=== PATIENT | female | born 1985 | race Caucasian/White ===

== ENCOUNTER 2018-09-15 01:09 | Inpatient (IN) | payer OTHER, BC ==
[~2018-09-15] VITALS: Ht 162.6 cm; Wt 71.0 kg
[2018-09-15] VITALS (7 sets, daily range): BP systolic 101–116; BP diastolic 58–74; PULSE 62–116; RESP 16; Ht 162.6 cm; Wt 71.0 kg
[2018-09-15] MEDS ORDERED: KETOROLAC 15 MG INJ IV STA (02:28)
[2018-09-15] MEDS ORDERED: SOD CHLORIDE 0.9% 1,000 ML IV STA (02:28)
[2018-09-15] MEDS ORDERED: ONDANSETRON 4 MG INJ IV STA (02:28)
--- NOTE | 2018-09-15 04:35 | ERD ---
ER Documentation Chief Complaint Chief Complaint AP/FEVER X 3 DAYS HPI The patient is a 32-year-old female, presenting to the ER because of right-sided abdominal pain and back pain and fever for 3days. She had similar symptoms previously, denies cough, neck pain, chest pain, dyspnea, vomiting, dysuria, complains of constipation. She does not smoke, drinks socially Medical history: None Past surgical history: Rhinoplasty ROS All systems reviewed and are negative except as per history of present illness. Medications Home Meds No Active Prescriptions or Reported Meds Allergies Allergies: Coded Allergies: No Known Allergy (Unverified , 09/15/18) PMhx/Soc Medical and Surgical Hx: pt denies Medical Hx, pt denies Surgical Hx Hx Alcohol Use: No Hx Substance Use: No Hx Tobacco Use: No Smoking Status: Never smoker Physical Exam Vitals Vital Signs Date Temp Pulse Resp B/P (MAP) Pulse Ox O2 O2 Flow FiO2 Time Delivery Rate 09/15/18 87 17 124/84 97 Room Air 05:05 (97) 09/15/18 99.7 03:45 09/15/18 99.8 109 18 139/68 97 01:16 (91) Physical Exam Const: No acute distress. Head: Atraumatic. Eyes: Normal Conjunctiva. ENT: Normal External Ears, Nose and Mouth. Neck: Full range of motion. No meningismus. Resp: Clear to auscultation bilaterally. Cardio: Regular tachycardic Abd: Soft, non distended, normal bowel sounds, right CVA tenderness Skin: No petechiae or rashes. Back: No midline or flank tenderness. Ext: No cyanosis, or edema. Neur: Awake and alert. No focal deficit Psych: Normal Mood and Affect. Result Diagram: 09/15/18 0237 09/15/18 0237 Results 24 hrs Laboratory Tests Test 09/15/18 02:37 09/15/18 02:41 White Blood Count 20.8 10^3/ul Red Blood Count 3.98 10^6/ul Hemoglobin 11.3 g/dl Hematocrit 35.0 % Mean Corpuscular Volume 87.9 fl Mean Corpuscular Hemoglobin 28.4 pg Mean Corpuscular Hemoglobin Concent 32.3 g/dl Red Cell Distribution Width 14.5 % Platelet Count 223 10^3/UL Mean Platelet Volume 9.7 fl Immature Granulocytes % 1.100 % Neutrophils % 88.3 % Lymphocytes % 5.3 % Monocytes % 5.1 % Eosinophils % 0.0 % Basophils % 0.2 % Nucleated Red Blood Cells % 0.0 /100WBC Immature Granulocytes # 0.230 10^3/ul Neutrophils # 18.4 10^3/ul Lymphocytes # 1.1 10^3/ul Monocytes # 1.1 10^3/ul Eosinophils # 0.0 10^3/ul Basophils # 0.0 10^3/ul Nucleated Red Blood Cells # 0.0 10^3/ul Prothrombin Time 13.9 Sec Prothrombin Time Ratio 1.1 INR International Normalized Ratio 1.06 Activated Partial Thromboplast Time 28.0 Sec Urine Color YELLOW Urine Clarity SLIGHTLY CLOUDY Urine pH 7.0 Urine Specific [place] 1.016 Urine Ketones 1+ mg/dL Urine Nitrite NEGATIVE mg/dL Urine Bilirubin NEGATIVE mg/dL Urine Urobilinogen NEGATIVE mg/dL Urine Leukocyte Esterase 2+ Vandana/ul Urine Microscopic RBC 7 /HPF Urine Microscopic WBC 70 /HPF Urine Squamous Epithelial Cells FEW /HPF Urine Hemoglobin 1+ mg/dL Urine Glucose NEGATIVE mg/dL Urine Total Protein 1+ mg/dl Sodium Level 137 mmol/L Potassium Level 4.0 mmol/L Chloride Level 108 mmol/L Carbon Dioxide Level 20 mmol/L Anion Gap 9 Blood Urea Nitrogen 11 mg/dl Creatinine 0.72 mg/dl Est Glomerular Filtrat Rate mL/min > 60 mL/min Glucose Level 111 mg/dl Calcium Level 8.8 mg/dl Total Bilirubin 0.3 mg/dl Direct Bilirubin 0.00 mg/dl Indirect Bilirubin 0.3 mg/dl Aspartate Amino Transf (AST/SGOT) 50 IU/L Alanine Aminotransferase (ALT/SGPT) 53 IU/L Alkaline Phosphatase 116 IU/L Total Protein 6.9 g/dl Albumin 3.4 g/dl Globulin 3.50 g/dl Albumin/Globulin Ratio 0.97 Lipase 28 U/L POC Beta HCG, Qualitative NEGATIVE Current Medications Medications Dose Sig/Olvin Start Time Status Last (Trade) Ordered Route PRN Stop Time Admin Dose Reason Admin Sodium 1,000 ml @ Q1H STAT 09/15/18 DC 09/15/18 Chloride 1,000 mls/hr IV 02:28 02:44 09/15/18 03:27 Ondansetron 4 mg ONCE STAT 09/15/18 DC 09/15/18 HCl (Zofran IV 02:28 02:55 Inj) 09/15/18 02:30 Ketorolac 15 mg ONCE STAT 09/15/18 DC 09/15/18 Tromethamine IV 02:28 02:55 (Toradol) 09/15/18 02:30 Piperacillin 100 ml @ ONCE ONCE 09/15/18 DC 09/15/18 Sod/ 200 mls/hr IVPB 05:00 05:27 Tazobactam 09/15/18 05:29 Sod Procedures/MDM [place] [id number] Radiology Main Line: [phone] DIAGNOSTIC IMAGING REPORT Patient: DOROTHY LARES : 1985 Age: 32 Sex: F MR #: [id number] DOS: 09/15/18 0228 Ordering MD: DANIELLE CHRISTINE PA-C Location: [facility] Room/Bed: PROCEDURE: CT Abdomen and pelvis without contrast. CLINICAL INDICATION: Abdominal pain TECHNIQUE: CT scan of the abdomen and pelvis without contrast was performed on a multidetector high-resolution CT scan. . Coronal and sagittal reformatted images were obtained from the axial source images. Standard CT scan of the abdomen pelvis without contrast protocols were performed. The total exam CTDI equals 11.53 mGy and the total exam DLP equals 691.54 mGy- cm. One or more of the following dose reduction techniques were used: - Automated exposure control. - Adjustment of the mA and/or kV according to patient size. Use of iterative reconstruction technique. Dicom images are available COMPARISON: None. FINDINGS: There is a 5 mm obstructing calcified calculus approximately 4 cm distal to the right ureter pelvic junction with moderate proximal right hydroureter and hydronephrosis. Remainder of the right ureter is unremarkable. No other right urinary calcified calculi. No evidence of left urinary calcified calculi or obstructive uropathy. The kidneys are normal in size without intra renal masses. Urinary bladder partially contracted otherwise unremarkable. Anteverted anteflexed uterus otherwise unremarkable. In the left adnexa is a 2.3 cm cyst consistent with a left ovarian / para ovarian cyst. No other adnexal masses. No evidence of intra-abdominal free air, free fluid, abscesses or lymphadenopathy. Stomach, small bowel, large bowel and appendix are unremarkable. Liver spleen pancreas adrenal glands and gallbladder are unremarkable. No evidence of biliary ductal dilation. Bilateral tiny pleural effusions. Bibasilar patchy ground-glass opacities consistent with subsegmental atelectasis/pneumonitis. Aorta unremarkable. Tiny fat containing umbilical hernia without herniated bowel or strangulation. The osseous structures are unremarkable without acute osseous findings or osteoblastic/osteolytic lesions. IMPRESSION: 1. 5 mm obstructing proximal right ureteral calcified calculus 4 cm distal to the right ureteral pelvic junction with moderate proximal right hydroureter and hydronephrosis. 2. No other calcified urinary calculi bilaterally. No left obstructive uropathy. 3. 2.3 cm cyst left adnexa likely a left ovarian / para ovarian cyst. Follow-up pelvic ultrasound may be helpful. 4. Bilateral tiny pleural effusions. Bibasilar patchy ground-glass opacities consistent with subsegmental atelectasis/pneumonitis. 5. Tiny fat containing umbilical hernia without herniated bowel or strangulation. RPTAT:AAJJ Physician Geeta Date Time Electronically viewed and signed by Physician Geeta on 09/15/2018 04:21 BM/ CC: DANIELLE CHRISTINE PA-C [id number] MEDICAL MAKING DECISION: The patient is a 32-year-old female, presenting with acute right obstructing renal stone and acute right pyelonephritis. She was treated with 1 L normal saline, Zosyn IV, Toradol and IV and Zofran IV with good response The differential diagnoses considered include but are not limited to cholelithiasis, cholecystitis, choledocholithiasis, cholangitis, pancreatitis, hepatitis, gastritis, peptic ulcer disease, gastric ulcer, appendicitis, cystitis, diverticulitis, partial small bowel obstruction. Departure Diagnosis: Primary Impression: Pyelonephritis Additional Impressions: Right ureteral stone Anemia Condition: Stable Comments I discussed the findings with the patient. I discussed the patient with Dr Adler at 5:15a , who was made aware of the lab, the treatment, the patient condition. The patient is admitted to [facility] Disclaimer: Inadvertent spelling and grammatical errors are likely due to EHR/dictation software use and do not reflect on the overall quality of patient care. Also, please note that the electronic time recorded on this note does not necessarily reflect the actual time of the patient encounter. JUN HOLLINS MD September 15, 2018 04:35
[2018-09-15] MEDS ORDERED: PIPER-TAZO 3.375 GM IV (PMX) 100 ML IVPB ONE (05:00)
[2018-09-15] MEDS ORDERED: TAMSULOSIN (SR) 0.4 MG CAP PO ONE (06:30)
[2018-09-15] MEDS ORDERED: BISACODYL (EC) 5 MG TAB PO PRN (06:30)
[2018-09-15] MEDS ORDERED: DOCUSATE SODIUM 100 MG CAP PO PRN (06:30)
[2018-09-15] MEDS ORDERED: NACL 0.9% 3 ML SYG IV SCH (06:30)
[2018-09-15] MEDS: SOD CHLORIDE 0.9% 1,000 ML IV SCH ×3 (06:55→16:09)
[2018-09-15] MEDS: HYDROmorphONE 0.5 MG/0.5 ML SYG IV PRN ×3 (09:33→20:14)
[2018-09-15] MEDS: CEFTRIAXONE 2 GM/50 ML (PMX) 50 ML IVPB SCH (09:38)
--- NOTE | 2018-09-15 10:04 | HP ---
Date/Time of Note Date/Time of Note DATE: 09/15/18 TIME: 10:01 Assessment/Plan [facility]TE Prophylaxis Pharmacological prophylaxis: NA/contraindicated Pharm contraindication: low risk/ambulating Lines/Catheters IV [facility] (from [facility]): Peripheral IV Assessment/Plan Hospital Course 32-year-old female with no significant comorbidities who came to the emergency room with febrile episodes and pain with CT evidence of obstructing proximal right ureteral calculus, who will be admitted to inpatient setting for further treatment and evaluation. 1. Sepsis with leukocytosis and tachycardia, present on admission secondary to underlying urinary tract infection. -Continue empiric antimicrobials. -Obtain pancultures -Continue IV fluids. -Monitor for any septic shock. 2. Obstructing right ureteral calculus. -The patient was started on tamsulosin. -Continue IV hydration. -Continue pain control. -Continue empiric antimicrobials. -Urology consult has been obtained. Plan: The patient will be admitted to inpatient medical surgical floor. The patient will be started on a regular diet. The patient will be started on DVT prophylaxis. The patient will remain a full code. Activities will be as tolerated. The rest of the patient's management will be based on the clinical course,, inputs from consultants, and the results of diagnostic studies. Based on the patient's clinical presentation, she most probably requires at least 2 midnights' stay for further management and evaluation of her clinical presentation. Patient was seen in collaboration with Dr. Borrero. Result Diagram: 09/15/18 0237 09/15/18 0237 Results 24hrs Laboratory Tests Test 09/15/18 02:37 09/15/18 02:41 White Blood Count 20.8 H Red Blood Count 3.98 L Hemoglobin 11.3 L Hematocrit 35.0 L Mean Corpuscular Volume 87.9 Mean Corpuscular Hemoglobin 28.4 L Mean Corpuscular Hemoglobin Concent 32.3 Red Cell Distribution Width 14.5 Platelet Count 223 Mean Platelet Volume 9.7 Immature Granulocytes % 1.100 H Neutrophils % 88.3 H Lymphocytes % 5.3 L Monocytes % 5.1 Eosinophils % 0.0 Basophils % 0.2 Nucleated Red Blood Cells % 0.0 Immature Granulocytes # 0.230 H Neutrophils # 18.4 H Lymphocytes # 1.1 Monocytes # 1.1 H Eosinophils # 0.0 Basophils # 0.0 Nucleated Red Blood Cells # 0.0 Prothrombin Time 13.9 Prothrombin Time Ratio 1.1 INR International Normalized Ratio 1.06 Activated Partial Thromboplast Time 28.0 Urine Color YELLOW Urine Clarity SLIGHTLY CLOUDY A Urine pH 7.0 Urine Specific [place] 1.016 Urine Ketones 1+ H Urine Nitrite NEGATIVE Urine Bilirubin NEGATIVE Urine Urobilinogen NEGATIVE Urine Leukocyte Esterase 2+ H Urine Microscopic RBC 7 H Urine Microscopic WBC 70 H Urine Squamous Epithelial Cells FEW Urine Hemoglobin 1+ H Urine Glucose NEGATIVE Urine Total Protein 1+ H Sodium Level 137 Potassium Level 4.0 Chloride Level 108 Carbon Dioxide Level 20 L Anion Gap 9 Blood Urea Nitrogen 11 Creatinine 0.72 Est Glomerular Filtrat Rate mL/min > 60 Glucose Level 111 Calcium Level 8.8 Total Bilirubin 0.3 Direct Bilirubin 0.00 Indirect Bilirubin 0.3 Aspartate Amino Transf (AST/SGOT) 50 H Alanine Aminotransferase (ALT/SGPT) 53 Alkaline Phosphatase 116 Total Protein 6.9 Albumin 3.4 Globulin 3.50 H Albumin/Globulin Ratio 0.97 Lipase 28 POC Beta HCG, Qualitative NEGATIVE HPI/ROS Admit Date/Time Admit Date/Time September 15, 2018 at 05:17 Hx of Present Illness Reason for admission: Nephrolithiasis. Consult 1. Karthik Higgins MD, Urology. This is a 32-year-old [place] female who denied any significant past medical h istory. The patient came to the emergency room with chief complaint of febrile illness x3 days and also associated abdominal pain. Patient also verbalized chills. The patient verbalized that she has been constipated for the past 3 days. The patient denied any flank pain. The patient denied any dysuria, hematuria, frequency, or urgency. The patient denied any sore throat or cough. In the emergency room, patient underwent a CT scan of the abdomen and pelvis that was showing 5 mm obstructing proximal right ureteral calcified calculus 4 cm distal to the right ureteropelvic junction with moderate proximal right hydroureter and hydronephrosis. The patient's urinalysis was positive for omar kocyte esterase with urine microscopic WBC of 70. The patient had 1+ urine hemoglobin. The patient had underlying leukocytosis and low-grade fever. The patient was tachycardic. The patient was treated with IV Zosyn along with the IV analgesics and IV fluids in the emergency room. Urology consult was called by the ER physician. ROS Constitutional: chills, febrile Eyes: no complaints ENT: no complaints Respiratory: no complaints Cardiovascular: no complaints Gastrointestinal: pain, constipation Genitourinary: no complaints Musculoskeletal: no complaints Skin: no complaints Neurologic: no complaints Endocrine: no complaints Lymphatic: no complaints Psychological: no complaints Immunologic: no complaints PMH/Family/Social Past Medical History Medical History: no pertinent history Medications Current Medications Sodium Chloride 1,000 ml @ 125 mls/hr Q8H IV Last administered on 09/15/18at 06:55; Admin Dose 125 MLS/HR; Start 09/15/18 at 06:12 IV Flush (NS 3 ml) 3 ml PER PROTOCOL IV ; Start 09/15/18 at 06:30 Ondansetron HCl (Zofran Inj) 4 mg Q6H PRN IV NAUSEA/VOMITING; Start 09/15/18 at 06:30 Acetaminophen (Tylenol Tab) 650 mg Q6H PRN PO .PAIN 1-3 OR TEMP; Start 09/15/18 at 06:30 Hydromorphone HCl (Dilaudid) 0.5 mg Q4H PRN IV .SEVERE PAIN 7-10 Last administered on 09/15/18at 09:33; Admin Dose 0.5 MG; Start 09/15/18 at 06:30 Docusate Sodium (Colace) 100 mg Q12H PRN PO .CONSTIPATION; Start 09/15/18 at 06:30 Bisacodyl (Dulcolax) 5 mg DAILY PRN PO .CONSTIPATION; Start 09/15/18 at 06:30 Tamsulosin HCl (Flomax) 0.4 mg HS PO ; Start 09/15/18 at 21:00 Ceftriaxone Sodium 50 ml @ 100 mls/hr Q24H IVPB Last administered on 09/15/18at 09:38; Admin Dose 100 MLS/HR; Start 09/15/18 at 09:00 Coded Allergies: No Known Allergy (Unverified , 09/15/18) Past Surgical History Rhinoplasty. Social History Lives with family. Works in a [employer] office. Alcohol Use: occasionally Smoking Status: Never smoker Drug Use: none Exam/Review of Systems Vital Signs Vitals Vital Signs Date Temp Pulse Resp B/P (MAP) Pulse Ox O2 O2 Flow FiO2 Time Delivery Rate 09/15/18 98.4 66 16 104/69 100 Room Air 08:00 (81) Intake and Output 09/14/18 09/14/18 09/15/18 1515:00 23:00 07:00 IntakeIntake Total 1000 ml BalanceBalance 1000 ml Exam Exam General: Adequately build 32 year-old female lying in bed in no apparent distres s. HEENT: Normocephalic, atraumatic. Eyes: Anicteric sclerae, conjunctivae clear. ENT: Nasal septum midline, oral mucosa moist. Neck supple, no JVD noticed. Respiratory: Bilaterally clear breath sounds. No use of accessory muscles of respiration. No adventitious breath sounds. Cardiovascular: S1, S2 heard. No murmurs or gallops. Abdomen: Soft and nondistended. Minimal right lower quadrant tenderness. Bowel sounds positive in all 4 quadrants. Genitourinary: No CVA tenderness. Extremities: No cyanosis, no clubbing, no edema. Peripheral pulses palpable. Neurologic: Cranial nerves II through XII grossly intact. The patient is awake, alert, and oriented. Skin: Normal skin turgor. No skin rashes. SALVADOR CROWLEY NP September 15, 2018 10:04
[2018-09-15] MEDS: ACETAMINOPHEN 325 MG TAB PO PRN ×2 (16:06→22:54)
[2018-09-15] MEDS: POLYETHYLENE GLYCOL 17 GM PACKET PO SCH (20:17)
[2018-09-15] MEDS: TAMSULOSIN (SR) 0.4 MG CAP PO SCH (20:17)
--- NOTE | 2018-09-15 21:53 | CONS ---
Assessment/Plan Assessment/Plan Hospital Course (Demo Recall) 32-year-old female presented to the hospital emergency room with fever for 3 days. She also did have chills and pain in the right side of the abdomen. She underwent a CT scan of the abdomen and pelvis and that showed: 1. 5 mm obstructing proximal right ureteral calcified calculus 4 cm distal to the right ureteral pelvic junction with moderate proximal right hydroureter and hydronephrosis. 2. No other calcified urinary calculi bilaterally. No left obstructive uropathy. 3. 2.3 cm cyst left adnexa likely a left ovarian / para ovarian cyst. Follow-up pelvic ultrasound may be helpful. 4. Bilateral tiny pleural effusions. Bibasilar patchy ground-glass opacities consistent with subsegmental atelectasis/pneumonitis. 5. Tiny fat containing umbilical hernia without herniated bowel or strangulation. Patient states that she had a kidney stone over 10 years earlier and she passed it. Her mother has a history of kidney stones The patient continues to have fever I did show her the pictures of the CT scan. Explained to her the treatment options. I explained to her that because of her fever with just have to do cystoscopy and inserted JJ stent and treat the infection and at a later date we will treat the stone. I explained to her that once we put the JJ stent and once she has no more fever she will be discharged on antibiotic and then she will have to follow-up with her primary care doctor who should refer her to the urologist contracted with her medical group. I will try to schedule her cystoscopy and insertion of right ureteral JJ stent for tomorrow around 5:30 PM. Consultation Date/Type/Reason Admit Date/Time September 15, 2018 at 05:17 Date of Consultation: September 15, 2018 Type of Consult Urology Reason for Consultation Right upper ureteral stone Requesting Provider: YARI ECHAVARRIA Date/Time of Note DATE: 09/15/18 TIME: 21:42 Hx of Present Illness 32-year-old female presented to the hospital emergency room with fever for 3 days. She also did have chills and pain in the right side of the abdomen. She underwent a CT scan of the abdomen and pelvis and that showed: 1. 5 mm obstructing proximal right ureteral calcified calculus 4 cm distal to the right ureteral pelvic junction with moderate proximal right hydroureter and hydronephrosis. 2. No other calcified urinary calculi bilaterally. No left obstructive uropathy. 3. 2.3 cm cyst left adnexa likely a left ovarian / para ovarian cyst. Follow-up pelvic ultrasound may be helpful. 4. Bilateral tiny pleural effusions. Bibasilar patchy ground-glass opacities consistent with subsegmental atelectasis/pneumonitis. 5. Tiny fat containing umbilical hernia without herniated bowel or strangulation. Patient states that she had a kidney stone over 10 years earlier and she passed it. Her mother has a history of kidney stones Constitutional: febrile Eyes: no complaints ENT: no complaints Respiratory: no complaints Cardiovascular: no complaints Gastrointestinal: no complaints Genitourinary: flank pain Musculoskeletal: no complaints Skin: no complaints Neurologic: no complaints Endocrine: no complaints Lymphatic: no complaints Past Medical History Medical History: no pertinent history, other (History of kidney stone about 10 years earlier) Home Meds No Active Prescriptions or Reported Meds Medications Current Medications Sodium Chloride 1,000 ml @ 125 mls/hr Q8H IV Last administered on 09/15/18 16:09; Admin Dose 125 MLS/HR; Start 09/15/18 at 06:12 IV Flush (NS 3 ml) 3 ml PER PROTOCOL IV ; Start 09/15/18 at 06:30 Ondansetron HCl (Zofran Inj) 4 mg Q6H PRN IV NAUSEA/VOMITING; Start 09/15/18 at 06:30 Acetaminophen (Tylenol Tab) 650 mg Q6H PRN PO .PAIN 1-3 OR TEMP Last administered on 09/15/18 16:06; Admin Dose 650 MG; Start 09/15/18 at 06:30 Hydromorphone HCl (Dilaudid) 0.5 mg Q4H PRN IV .SEVERE PAIN 7-10 Last administered on 09/15/18 20:14; Admin Dose 0.5 MG; Start 09/15/18 at 06:30 Docusate Sodium (Colace) 100 mg Q12H PRN PO .CONSTIPATION; Start 09/15/18 at 06:30 Bisacodyl (Dulcolax) 5 mg DAILY PRN PO .CONSTIPATION; Start 09/15/18 at 06:30 Tamsulosin HCl (Flomax) 0.4 mg HS PO Last administered on 5/30/19at 20:17; Admin Dose 0.4 MG; Start 09/15/18 at 21:00 Ceftriaxone Sodium 50 ml @ 100 mls/hr Q24H IVPB Last administered on 09/15/18at 09:38; Admin Dose 100 MLS/HR; Start 09/15/18 at 09:00 Polyethylene Glycol (Miralax) 17 gm BID PO Last administered on 09/15/18at 20:17; Admin Dose 17 GM; Start 09/15/18 at 21:00 Allergies: Coded Allergies: No Known Allergy (Unverified , 09/15/18) Past Surgical History Past Surgical Hx: no surgical history Family History Significant Family History: other (Mother had history of kidney stones) Social History Alcohol Use: occasionally Smoking Status: Never smoker Drug Use: none Exam/Review of Systems Exam Vitals Vital Signs Date Temp Pulse Resp B/P (MAP) Pulse Ox O2 O2 Flow FiO2 Time Delivery Rate 09/15/18 99.4 108 105/58 91 Room Air 20:00 (74) 09/15/18 2.0 16:45 09/15/18 16 14:00 Intake and Output 09/14/18 09/14/18 09/15/18 1515:00 23:00 07:00 IntakeIntake Total 1000 ml BalanceBalance 1000 ml Constitutional: alert Psych: no complaints Head: normocephalic Eyes: nl conjunctiva ENMT: nl external ears & nose Neck: supple, non-tender Respiratory: normal air movement; No wheezing Cardiovascular: regular rate and rhythm Gastrointestinal: soft Genitourinary - Female: CVA tenderness (Right side) Musculoskeletal: nl extremities to inspection Extremities: No calf tenderness Neurological: nl mental status Skin: nl turgor Results Result Diagram: 09/15/18 0237 09/15/18 0237 Results 24hrs Laboratory Tests Test 09/15/18 02:37 09/15/18 02:41 White Blood Count 20.8 H Red Blood Count 3.98 L Hemoglobin 11.3 L Hematocrit 35.0 L Mean Corpuscular Volume 87.9 Mean Corpuscular Hemoglobin 28.4 L Mean Corpuscular Hemoglobin Concent 32.3 Red Cell Distribution Width 14.5 Platelet Count 223 Mean Platelet Volume 9.7 Immature Granulocytes % 1.100 H Neutrophils % 88.3 H Lymphocytes % 5.3 L Monocytes % 5.1 Eosinophils % 0.0 Basophils % 0.2 Nucleated Red Blood Cells % 0.0 Immature Granulocytes # 0.230 H Neutrophils # 18.4 H Lymphocytes # 1.1 Monocytes # 1.1 H Eosinophils # 0.0 Basophils # 0.0 Nucleated Red Blood Cells # 0.0 Prothrombin Time 13.9 Prothrombin Time Ratio 1.1 INR International Normalized Ratio 1.06 Activated Partial Thromboplast Time 28.0 Urine Color YELLOW Urine Clarity SLIGHTLY CLOUDY A Urine pH 7.0 Urine Specific Molino 1.016 Urine Ketones 1+ H Urine Nitrite NEGATIVE Urine Bilirubin NEGATIVE Urine Urobilinogen NEGATIVE Urine Leukocyte Esterase 2+ H Urine Microscopic RBC 7 H Urine Microscopic WBC 70 H Urine Squamous Epithelial Cells FEW Urine Hemoglobin 1+ H Urine Glucose NEGATIVE Urine Total Protein 1+ H Sodium Level 137 Potassium Level 4.0 Chloride Level 108 Carbon Dioxide Level 20 L Anion Gap 9 Blood Urea Nitrogen 11 Creatinine 0.72 Est Glomerular Filtrat Rate mL/min > 60 Glucose Level 111 Calcium Level 8.8 Total Bilirubin 0.3 Direct Bilirubin 0.00 Indirect Bilirubin 0.3 Aspartate Amino Transf (AST/SGOT) 50 H Alanine Aminotransferase (ALT/SGPT) 53 Alkaline Phosphatase 116 Total Protein 6.9 Albumin 3.4 Globulin 3.50 H Albumin/Globulin Ratio 0.97 Lipase 28 POC Beta HCG, Qualitative NEGATIVE Imaging Imaging CT scan of the abdomen and pelvis: 1. 5 mm obstructing proximal right ureteral calcified calculus 4 cm distal to the right ureteral pelvic junction with moderate proximal right hydroureter and hydronephrosis. 2. No other calcified urinary calculi bilaterally. No left obstructive uropathy. 3. 2.3 cm cyst left adnexa likely a left ovarian / para ovarian cyst. Follow-up pelvic ultrasound may be helpful. 4. Bilateral tiny pleural effusions. Bibasilar patchy ground-glass opacities consistent with subsegmental atelectasis/pneumonitis. 5. Tiny fat containing umbilical hernia without herniated bowel or strangulatio n. Medications Medication Current Medications Sodium Chloride 1,000 ml @ 125 mls/hr Q8H IV Last administered on 09/15/18at 16:09; Admin Dose 125 MLS/HR; Start 09/15/18 at 06:12 IV Flush (NS 3 ml) 3 ml PER PROTOCOL IV ; Start 09/15/18 at 06:30 Ondansetron HCl (Zofran Inj) 4 mg Q6H PRN IV NAUSEA/VOMITING; Start 09/15/18 at 06:30 Acetaminophen (Tylenol Tab) 650 mg Q6H PRN PO .PAIN 1-3 OR TEMP Last administered on 09/15/18 16:06; Admin Dose 650 MG; Start 09/15/18 at 06:30 Hydromorphone HCl (Dilaudid) 0.5 mg Q4H PRN IV .SEVERE PAIN 7-10 Last administered on 09/15/18 20:14; Admin Dose 0.5 MG; Start 09/15/18 at 06:30 Docusate Sodium (Colace) 100 mg Q12H PRN PO .CONSTIPATION; Start 09/15/18 at 06:30 Bisacodyl (Dulcolax) 5 mg DAILY PRN PO .CONSTIPATION; Start 09/15/18 at 06:30 Tamsulosin HCl (Flomax) 0.4 mg HS PO Last administered on 09/15/18 20:17; Admin Dose 0.4 MG; Start 09/15/18 at 21:00 Ceftriaxone Sodium 50 ml @ 100 mls/hr Q24H IVPB Last administered on 09/15/18 09:38; Admin Dose 100 MLS/HR; Start 09/15/18 at 09:00 Polyethylene Glycol (Miralax) 17 gm BID PO Last administered on 09/15/18 20:17; Admin Dose 17 GM; Start 09/15/18 at 21:00 NINO CHEATHAM MD September 15, 2018 21:52
[2018-09-16] VITALS (25 sets, daily range): BP systolic 109–133; BP diastolic 29–92; PULSE 76–140; RESP 16–32
[2018-09-16] MEDS: SOD CHLORIDE 0.9% 1,000 ML IV SCH ×3 (00:36→22:12)
[2018-09-16] MEDS: HYDROmorphONE 0.5 MG/0.5 ML SYG IV PRN ×5 (00:42→21:20)
[2018-09-16] MEDS: ACETAMINOPHEN 325 MG TAB PO PRN (05:58)
[2018-09-16] MEDS: CEFTRIAXONE 2 GM/50 ML (PMX) 50 ML IVPB SCH (08:40)
--- NOTE | 2018-09-16 08:55 | PREAC ---
Date/Time of Note Date/Time of Note DATE: 09/16/18 TIME: 08:53 Anesthesia Eval and Record Evaluation Time Pre-Procedure Interview DATE: 09/16/18 TIME: 08:53 Age 32 Sex female NPO: 8 hrs Preoperative diagnosis obstructing R ureteral calculus Planned procedure Cystoscopy ad insertion of R ureteral JJ stent Past Medical History Past Medical History: Includes Heme: Anemia Surgery & Anesthesia Issues No known issue (rhinoplasty) Meds Anticoagulation: No Beta Kalyan within 24 hr: No Reason Beta Kalyan not given: Pt. not on B-Kalyan No Active Prescriptions or Reported Meds Current Medications Sodium Chloride 1,000 ml @ 125 mls/hr Q8H IV Last administered on 09/16/18at 08:40; Admin Dose 125 MLS/HR; Start 09/15/18 at 06:12 IV Flush (NS 3 ml) 3 ml PER PROTOCOL IV ; Start 09/15/18 at 06:30 Ondansetron HCl (Zofran Inj) 4 mg Q6H PRN IV NAUSEA/VOMITING; Start 09/15/18 at 06:30 Acetaminophen (Tylenol Tab) 650 mg Q6H PRN PO .PAIN 1-3 OR TEMP Last administered on 09/16/18at 05:58; Admin Dose 650 MG; Start 09/15/18 at 06:30 Hydromorphone HCl (Dilaudid) 0.5 mg Q4H PRN IV .SEVERE PAIN 7-10 Last administered on 09/16/18at 05:57; Admin Dose 0.5 MG; Start 09/15/18 at 06:30 Docusate Sodium (Colace) 100 mg Q12H PRN PO .CONSTIPATION; Start 09/15/18 at 06:30 Bisacodyl (Dulcolax) 5 mg DAILY PRN PO .CONSTIPATION; Start 09/15/18 at 06:30 Tamsulosin HCl (Flomax) 0.4 mg HS PO Last administered on 09/15/18at 20:17; Admin Dose 0.4 MG; Start 09/15/18 at 21:00 Ceftriaxone Sodium 50 ml @ 100 mls/hr Q24H IVPB Last administered on 09/16/18at 08:40; Admin Dose 100 MLS/HR; Start 09/15/18 at 09:00 Polyethylene Glycol (Miralax) 17 gm BID PO Last administered on 09/15/18at 20:17; Admin Dose 17 GM; Start 09/15/18 at 21:00 Meds reviewed: Yes Allergies Coded Allergies: No Known Allergy (Unverified , 09/15/18) Allergies Reviewed: Yes Labs/Studies Labs Reviewed: Reviewed by anesthesiologist Result Diagram: 09/16/18 0556 09/16/18 0556 Laboratory Tests 09/16/18 05:56 test: Negative Pre-procedure Exam Last vitals Vital Signs Date Temp Pulse Resp B/P (MAP) Pulse Ox O2 O2 Flow FiO2 Time Delivery Rate 09/16/18 100.8 76 18 115/62 96 08:00 (79) 09/16/18 Room Air 02:00 09/15/18 2.0 16:45 Airway: Adequate mouth opening, Adequate thyromental dist Mallampati: Mallampati II Teeth: Normal Lung: Normal Heart: Normal ASA Physical Status ASA physical status: 1 Emergency: None Planned Anesthetic General/MAC: ETT, LMA Pre-operative Attestations Prior to commencing anesthesia and surgery, the patient was re-evaluated, there was verification of: *The patient's identity *The results of appropriate recent lab work and preoperative vital signs *The above evaluation not changing prior to induction *Anesthetic plan, risk benefits, alternative and complications discussed with patient/family; questions answered; patient/family understands, accepts and wishes to proceed. GEOVANY TOMAS September 16, 2018 08:55
[2018-09-16] MEDS: POLYETHYLENE GLYCOL 17 GM PACKET PO SCH ×2 (09:00→21:20)
[2018-09-16] MEDS: ONDANSETRON 4 MG INJ IV PRN (09:59)
--- NOTE | 2018-09-16 12:48 | PN ---
Date/Time of Note Date/Time of Note DATE: 09/16/18 TIME: 12:42 Assessment/Plan VTE Prophylaxis Risk score (from Ns)>0 risk: 1 SCD applied (from Ns): Yes Pharmacological prophylaxis: NA/contraindicated Pharm contraindication: low risk/ambulating Lines/Catheters IV Catheter Type (from [facility]): Peripheral IV Urinary Cath still in place: No Assessment/Plan Hospital Course SUBJECTIVE: Denies any abdominal pain. Continues to have a low grade fever. OBJECTIVE: Physical Exam General: Adequately build 32 year-old female lying in bed in no apparent distress. HEENT: Normocephalic, atraumatic. Eyes: Anicteric sclerae, conjunctivae clear. ENT: Nasal septum midline, oral mucosa moist. Neck supple, no JVD noticed. Respiratory: Bilaterally clear breath sounds. No use of accessory muscles of respiration. No adventitious breath sounds. Cardiovascular: S1, S2 heard. No murmurs or gallops. Abdomen: Soft and nondistended. Minimal right lower quadrant tenderness. Bowel sounds positive in all 4 quadrants. Genitourinary: No CVA tenderness. Extremities: No cyanosis, no clubbing, no edema. Peripheral pulses palpable. Neurologic: Cranial nerves II through XII grossly intact. The patient is awake, alert, and oriented. Skin: Normal skin turgor. No skin rashes. Labs & Vitals per chart ASSESSMENT & PLAN 32-year-old female with no significant comorbidities who came to the emergency room with febrile episodes and pain with CT evidence of obstructing proximal right ureteral calculus, who was admitted to inpatient setting for further treatment and evaluation. 1. Sepsis with leukocytosis and tachycardia, present on admission secondary to underlying urinary tract infection. -Continue empiric antimicrobials. -Urine culture showing Gram negative rods >100,000 CFU/ml. -Continue IV fluids. -Monitor for any septic shock. 2. Complicated UTI. -Urine culture showing Gram negative rods >100,000 CFU/ml. -Continue empiric antimicrobials. -Await finial cultures. 3. Obstructing right ureteral calculus. -The patient is on tamsulosin. -Continue IV hydration. -Continue pain control. -Continue empiric antimicrobials. -Plan for cystoscopy and JJ stent placement. 4. Dyslipidemia. -Elevated triglycerides and suboptimal HDL. -Will advise a low-cholesterol diet. 5. Fluids, electrolytes, and nutrition. -N.p.o. for procedure. 6. DVT prophylaxis. -Bilateral SCDs 7. Plan. -Continue pain control. -Continue empiric antimicrobials. -Await cystoscopy. The patient was seen in collaboration with Dr. Hickman. Result Diagram: 09/16/18 0556 09/16/18 0556 Results 24hrs Laboratory Tests Test 09/16/18 05:56 White Blood Count 9.2 # Red Blood Count 3.74 L Hemoglobin 10.4 L Hematocrit 33.1 L Mean Corpuscular Volume 88.5 Mean Corpuscular Hemoglobin 27.8 L Mean Corpuscular Hemoglobin Concent 31.4 L Red Cell Distribution Width 14.8 H Platelet Count 241 Mean Platelet Volume 9.6 Immature Granulocytes % 0.700 H Neutrophils % Segmented Neutrophils % (Manual) 55 Band Neutrophils % (Manual) 24 H Lymphocytes % Lymphocytes % (Manual) 13 L Monocytes % Monocytes % (Manual) 6 Eosinophils % Eosinophils % (Manual) 1 Basophils % Basophils % (Manual) 1 Nucleated Red Blood Cells % 0.0 Immature Granulocytes # 0.060 H Neutrophils # Neutrophils # (Manual) 5.3 Band Neutrophils # 2.2 H Lymphocytes (Manual) 1.1 Lymphocytes # Monocytes # Monocytes # (Manual) 0.5 Eosinophils # Basophils # Basophils # (Manual) 0.0 Nucleated Red Blood Cells # Platelet Estimate NORMAL Giant Platelets 10 H Polychromasia 1+ Poikilocytosis 3+ Anisocytosis 1+ Macrocytosis 1+ Prothrombin Time 13.2 Prothrombin Time Ratio 1.0 INR International Normalized Ratio 0.99 Activated Partial Thromboplast Time 30.8 Sodium Level 138 Potassium Level 4.6 Chloride Level 108 Carbon Dioxide Level 24 Anion Gap 6 Blood Urea Nitrogen 6 L Creatinine 0.68 Est Glomerular Filtrat Rate mL/min > 60 Glucose Level 102 Hemoglobin A1c 5.4 Calcium Level 8.1 L Phosphorus Level 4.1 Magnesium Level 1.9 Total Bilirubin 0.3 Direct Bilirubin 0.00 Indirect Bilirubin 0.3 Aspartate Amino Transf (AST/SGOT) 31 Alanine Aminotransferase (ALT/SGPT) 33 Alkaline Phosphatase 90 Total Protein 5.9 #L Albumin 2.8 L Globulin 3.10 Albumin/Globulin Ratio 0.90 Triglycerides Level 313 H Cholesterol Level 138 LDL Cholesterol, Calculated 58 HDL Cholesterol 17 L Cholesterol/HDL Ratio 8.1 Thyroid Stimulating Hormone (TSH) 0.872 Free Thyroxine 1.39 Exam/Review of Systems Exam Vitals Vital Signs Date Temp Pulse Resp B/P (MAP) Pulse Ox O2 O2 Flow FiO2 Time Delivery Rate 09/16/18 Nasal 2.0 09:40 Cannula 09/16/18 100.8 76 18 115/62 96 08:00 (79) Intake and Output 09/15/18 09/15/18 09/16/18 1515:00 23:00 07:00 IntakeIntake Total 700 ml 1950 ml 1375 ml BalanceBalance 700 ml 1950 ml 1375 ml Results Results 24hrs Laboratory Tests Test 09/16/18 05:56 White Blood Count 9.2 # Red Blood Count 3.74 L Hemoglobin 10.4 L Hematocrit 33.1 L Mean Corpuscular Volume 88.5 Mean Corpuscular Hemoglobin 27.8 L Mean Corpuscular Hemoglobin Concent 31.4 L Red Cell Distribution Width 14.8 H Platelet Count 241 Mean Platelet Volume 9.6 Immature Granulocytes % 0.700 H Neutrophils % Segmented Neutrophils % (Manual) 55 Band Neutrophils % (Manual) 24 H Lymphocytes % Lymphocytes % (Manual) 13 L Monocytes % Monocytes % (Manual) 6 Eosinophils % Eosinophils % (Manual) 1 Basophils % Basophils % (Manual) 1 Nucleated Red Blood Cells % 0.0 Immature Granulocytes # 0.060 H Neutrophils # Neutrophils # (Manual) 5.3 Band Neutrophils # 2.2 H Lymphocytes (Manual) 1.1 Lymphocytes # Monocytes # Monocytes # (Manual) 0.5 Eosinophils # Basophils # Basophils # (Manual) 0.0 Nucleated Red Blood Cells # Platelet Estimate NORMAL Giant Platelets 10 H Polychromasia 1+ Poikilocytosis 3+ Anisocytosis 1+ Macrocytosis 1+ Prothrombin Time 13.2 Prothrombin Time Ratio 1.0 INR International Normalized Ratio 0.99 Activated Partial Thromboplast Time 30.8 Sodium Level 138 Potassium Level 4.6 Chloride Level 108 Carbon Dioxide Level 24 Anion Gap 6 Blood Urea Nitrogen 6 L Creatinine 0.68 Est Glomerular Filtrat Rate mL/min > 60 Glucose Level 102 Hemoglobin A1c 5.4 Calcium Level 8.1 L Phosphorus Level 4.1 Magnesium Level 1.9 Total Bilirubin 0.3 Direct Bilirubin 0.00 Indirect Bilirubin 0.3 Aspartate Amino Transf (AST/SGOT) 31 Alanine Aminotransferase (ALT/SGPT) 33 Alkaline Phosphatase 90 Total Protein 5.9 #L Albumin 2.8 L Globulin 3.10 Albumin/Globulin Ratio 0.90 Triglycerides Level 313 H Cholesterol Level 138 LDL Cholesterol, Calculated 58 HDL Cholesterol 17 L Cholesterol/HDL Ratio 8.1 Thyroid Stimulating Hormone (TSH) 0.872 Free Thyroxine 1.39 Medications Medication Current Medications Sodium Chloride 1,000 ml @ 125 mls/hr Q8H IV Last administered on 09/16/18 08:40; Admin Dose 125 MLS/HR; Start 09/15/18 at 06:12 IV Flush (NS 3 ml) 3 ml PER PROTOCOL IV ; Start 09/15/18 at 06:30 Ondansetron HCl (Zofran Inj) 4 mg Q6H PRN IV NAUSEA/VOMITING Last administered on 09/16/18 09:59; Admin Dose 4 MG; Start 09/15/18 at 06:30 Acetaminophen (Tylenol Tab) 650 mg Q6H PRN PO .PAIN 1-3 OR TEMP Last administered on 09/16/18 05:58; Admin Dose 650 MG; Start 09/15/18 at 06:30 Hydromorphone HCl (Dilaudid) 0.5 mg Q4H PRN IV .SEVERE PAIN 7-10 Last admin istered on 09/16/18 09:57; Admin Dose 0.5 MG; Start 09/15/18 at 06:30 Docusate Sodium (Colace) 100 mg Q12H PRN PO .CONSTIPATION; Start 09/15/18 at 06:30 Bisacodyl (Dulcolax) 5 mg DAILY PRN PO .CONSTIPATION; Start 09/15/18 at 06:30 Tamsulosin HCl (Flomax) 0.4 mg HS PO Last administered on 09/15/18 20:17; Admin Dose 0.4 MG; Start 09/15/18 at 21:00 Ceftriaxone Sodium 50 ml @ 100 mls/hr Q24H IVPB Last administered on 09/16/18 08:40; Admin Dose 100 MLS/HR; Start 09/15/18 at 09:00 Polyethylene Glycol (Miralax) 17 gm BID PO Last administered on 09/15/18 20:17; Admin Dose 17 GM; Start 09/15/18 at 21:00 Acetaminophen (Tylenol Supp) 650 mg Q4H PRN NE MILD PAIN(1-3) OR TEMP>38C; Start 09/16/18 at 13:00; Status UNV SALVADOR CROWLEY NP September 16, 2018 12:48
[2018-09-16] MEDS ORDERED: ACETAMINOPHEN 650 MG SUPP PR PRN (13:00)
[2018-09-16] MEDS ORDERED: MIDAZOLAM 1 MG/ML 2 ML INJ ONE ×2 (17:59→19:10)
[2018-09-16] MEDS ORDERED: FENTAnyl 50 MCG/ML VIAL ONE (17:59)
[2018-09-16] MEDS ORDERED: ROCURONIUM 50 MG INJ ONE (18:40)
[2018-09-16] MEDS ORDERED: GLYCOPYRROLATE 0.4 MG INJ ONE (18:40)
[2018-09-16] MEDS ORDERED: PROPOFOL 20 ML ONE (18:40)
[2018-09-16] MEDS ORDERED: LIDOCAINE 2% (SDV) 5 ML INJ ONE (18:40)
[2018-09-16] MEDS ORDERED: NEOSTIGMINE 3 MG/3 ML SYRINGE ONE (18:40)
[2018-09-16] MEDS ORDERED: ONDANSETRON 4 MG INJ ONE (18:41)
--- NOTE | 2018-09-16 18:47 | OPR ---
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 The patient was positioned in the lithotomy position. She was already on antibiotics so no additional antibiotic was given. Timeout was done and the patient was identified by her name, birthdate, the procedure and the side of the procedure. The genital area and lower abdomen and upper thighs were all prepped and draped in the usual sterile manner I attempted to pass the 22 Marshallese cystoscope sheath into the bladder but her urethra is too tight therefore I had to dilate her with a female sounds up to #22 Marshallese then I inserted the 22 Marshallese cystoscope sheath into the bladder and collected urine for culture and sensitivity. The right ureteral orifice was then visualized. Spot films were taken from the bladder all the way up to the kidney and the stone was seen on the right side near L4 level. The right ureteral orifice was then cannulated with a 5 Marshallese open ended ureteral catheter and that was advanced with the zip wire inside of it all the way up and when it reached the stone the wire met resistance and the ureter was there torturous but with manipulation of the zip wire the zip wire did bypass the stone and then the ureter straightened up and then I advanced the open ended into the kidney. The zip wire was removed and I collected about 20 mL of hydronephrotic urine from the right kidney and send it for culture. The zip wire was reintroduced into the open ended and then the open-ended was removed. A 6 Marshallese by 22 cm long JJ stent was then advanced on the zip wire and had its proximal and curling into the kidney and the distal end curling into the bladder. The bladder was emptied and the patient was transferred to the recovery room in a stable and satisfactory condition. NINO CHEATHAM MD September 16, 2018 18:47
[2018-09-16] MEDS ORDERED: PROVENTIL HFA 6.7GM INHALER ONE (19:00)
--- NOTE | 2018-09-16 19:13 | PAC ---
Date/Time of Note Date/Time of Note DATE: 09/16/18 TIME: 19:12 Post-Anesthesia Notes Post-Anesthesia Note Last documented vital signs Vital Signs Date Temp Pulse Resp B/P (MAP) Pulse Ox O2 O2 Flow FiO2 Time Delivery Rate 09/16/18 99.3 111 16 117/66 Room Air 16:31 (83) 09/16/18 92 14:00 09/16/18 2.0 09:40 Activity: WNL Respiratory function: WNL Cardiovascular function: WNL Mental status: Baseline Pain reasonably controlled: Yes Hydration appropriate: Yes Nausea/Vomiting absent: Yes Comments BP:132/82, P:106, Spo2:100%, T:98,8 STERLING ABAD MD September 16, 2018 19:13
[2018-09-16] MEDS ORDERED: ALBUTEROL 0.5% (NEB) 2.5 MG/0.5 ML AMP ONE (19:23)
[2018-09-16] MEDS ORDERED: DIPHENHYDRAMINE 50 MG INJ IV PRN (19:30)
[2018-09-16] MEDS ORDERED: MEPERIDINE 25 MG INJ IV PRN (19:30)
[2018-09-16] MEDS ORDERED: HYDROmorphONE 1 MG/5 ML IV SYRINGE IV PRN ×2 (19:30)
[2018-09-16] MEDS ORDERED: MIDAZOLAM 1 MG/ML 2 ML INJ IV PRN (19:30)
[2018-09-16] MEDS ORDERED: ALBUTEROL 0.083% (NEB) 2.5 MG/3 ML AMP HHN PRN (19:30)
[2018-09-16] MEDS ORDERED: FENTAnyl 50 MCG/ML VIAL IV PRN (19:30)
[2018-09-16] MEDS ORDERED: ACETAMINOPHEN 1000MG/100ML IV 100 ML IVPB ONE (19:30)
[2018-09-16] MEDS ORDERED: ONDANSETRON 4 MG INJ IV PRN (19:30)
[2018-09-16] MEDS ORDERED: METOCLOPRAMIDE 10 MG INJ IV PRN (19:30)
[2018-09-16] MEDS ORDERED: LORAZEPAM 2 MG INJ IV PRN (19:30)
[2018-09-16] MEDS ORDERED: LEVALBUTEROL (NEB) 1.25 MG/0.5 ML AMP HHN PRN (19:30)
[2018-09-16] MEDS: MIDAZOLAM 1 MG/ML 2 ML INJ IV ONE ×2 (19:59→20:05)
[2018-09-16] MEDS: TAMSULOSIN (SR) 0.4 MG CAP PO SCH (21:20)
[2018-09-17 02:00] VITALS: BP 111/73; PULSE 93; RESP 18
[2018-09-17] MEDS: SOD CHLORIDE 0.9% 1,000 ML IV SCH ×3 (02:24→22:12)
[2018-09-17] MEDS: HYDROmorphONE 0.5 MG/0.5 ML SYG IV PRN ×2 (02:50→06:50)
[2018-09-17] MEDS: ACETAMINOPHEN 325 MG TAB PO PRN (04:07)
[2018-09-17 08:05] VITALS: BP 113/57; PULSE 115; RESP 16
[2018-09-17] MEDS: ONDANSETRON 4 MG INJ IV PRN (08:35)
[2018-09-17] MEDS: POLYETHYLENE GLYCOL 17 GM PACKET PO SCH ×2 (08:36→21:27)
[2018-09-17] MEDS: CEFTRIAXONE 2 GM/50 ML (PMX) 50 ML IVPB SCH (08:52)
[2018-09-17] MEDS: HYDROmorphONE 1 MG/ML SYG IV PRN ×3 (10:46→19:52)
[2018-09-17 14:26] VITALS: BP 130/76; PULSE 110; RESP 18
--- NOTE | 2018-09-17 14:35 | PN ---
Date/Time of Note Date/Time of Note DATE: 09/17/18 TIME: 14:32 Assessment/Plan VTE Prophylaxis Risk score (from Ns)>0 risk: 1 SCD applied (from Ns): Yes Pharmacological prophylaxis: NA/contraindicated Pharm contraindication: low risk/ambulating Lines/C[facility] IV Urinary Cath still in place: No Assessment/Plan Hospital Course SUBJECTIVE: Complains of abdominal pain and neck pain. OBJECTIVE: Physical Exam General: Adequately build 32 year-old female lying in bed in no apparent distress. HEENT: Normocephalic, atraumatic. Eyes: Anicteric sclerae, conjunctivae clear. ENT: Nasal septum midline, oral mucosa moist. Neck supple, no JVD noticed. Tenderness in the back of the neck. Respiratory: Bilaterally clear breath sounds. No use of accessory muscles of respiration. No adventitious breath sounds. Cardiovascular: S1, S2 heard. No murmurs or gallops. Abdomen: Soft and nondistended. Minimal right lower quadrant tenderness. Bowel sounds positive in all 4 quadrants. Genitourinary: No CVA tenderness. Extremities: No cyanosis, no clubbing, no edema. Peripheral pulses palpable. Neurologic: Cranial nerves II through XII grossly intact. The patient is awake, alert, and oriented. Skin: Normal skin turgor. No skin rashes. Labs & Vitals per chart ASSESSMENT & PLAN 32-year-old female with no significant comorbidities who came to the emergency room with febrile episodes and pain with CT evidence of obstructing proximal right ureteral calculus, who was admitted to inpatient setting for further treatment and evaluation. 1. Sepsis with leukocytosis and tachycardia, present on admission secondary to underlying urinary tract infection. -Continue empiric antimicrobials. -Urine culture showing E. coli >100,000 CFU/ml. -Continue IV fluids. -Monitor for any septic shock. 2. Complicated UTI. -Urine culture showing E. coli >100,000 CFU/ml. -Continue antimicrobials as per sensitivities. 3. Obstructing right ureteral calculus. -The patient is on tamsulosin. -Continue IV hydration. -Continue pain control. -Status post cystoscopy and insertion of right ureteral JJ stent on 09/16/2018. 4. Dyslipidemia. -Elevated triglycerides and suboptimal HDL. -Will advise a low-cholesterol diet. 5. Fluids, electrolytes, and nutrition. -Regular diet. 6. DVT prophylaxis. -Bilateral SCDs 7. Plan. -Continue pain control. -Continue antimicrobials. -Await clearance from Urology before discharge. The patient was seen in collaboration with Dr. Page. Result Diagram: 09/16/18 0556 09/16/18 0556 Exam/Review of Systems Exam Vitals Vital Signs Date Temp Pulse Resp B/P (MAP) Pulse Ox O2 O2 Flow FiO2 Time Delivery Rate 09/17/18 98.3 110 18 130/76 88 14:26 (94) 09/16/18 2.0 21:58 09/16/18 Nasal 20:38 Cannula Intake and Output 09/16/18 09/16/18 09/17/18 1515:00 23:00 07:00 IntakeIntake Total 600 ml 1595 ml 1090 ml OutputOutput Total 250 ml 520 ml 750 ml BalanceBalance 350 ml 1075 ml 340 ml Medications Medication Current Medications Sodium Chloride 1,000 ml @ 125 mls/hr Q8H IV Last administered on 09/17/18at 11:37; Admin Dose 125 MLS/HR; Start 09/15/18 at 06:12 IV Flush (NS 3 ml) 3 ml PER PROTOCOL IV ; Start 09/15/18 at 06:30 Ondansetron HCl (Zofran Inj) 4 mg Q6H PRN IV NAUSEA/VOMITING Last administered on 09/17/18at 08:35; Admin Dose 4 MG; Start 09/15/18 at 06:30 Acetaminophen (Tylenol Tab) 650 mg Q6H PRN PO .PAIN 1-3 OR TEMP Last administered on 09/17/18at 04:07; Admin Dose 650 MG; Start 09/15/18 at 06:30 Docusate Sodium (Colace) 100 mg Q12H PRN PO .CONSTIPATION; Start 09/15/18 at 06:30 Bisacodyl (Dulcolax) 5 mg DAILY PRN PO .CONSTIPATION; Start 09/15/18 at 06:30 Tamsulosin HCl (Flomax) 0.4 mg HS PO Last administered on 09/16/18at 21:20; Admin Dose 0.4 MG; Start 09/15/18 at 21:00 Ceftriaxone Sodium 50 ml @ 100 mls/hr Q24H IVPB Last administered on 09/17/18at 08:52; Admin Dose 100 MLS/HR; Start 09/15/18 at 09:00 Polyethylene Glycol (Miralax) 17 gm BID PO Last administered on 09/17/18at 08:36; Admin Dose 17 GM; Start 09/15/18 at 21:00 Acetaminophen (Tylenol Supp) 650 mg Q4H PRN [place] MILD PAIN(1-3) OR TEMP>38C Last administered on 09/16/18at 13:00; Admin Dose 650 MG; Start 09/16/18 at 13:00 Hydromorphone HCl (Dilaudid) 1 mg Q4H PRN IV .SEVERE PAIN 7-10 Last a dministered on 09/17/18at 10:46; Admin Dose 1 MG; Start 09/17/18 at 09:00 SALVADOR CROWLEY NP Sep 17, 2018 14:35
--- NOTE | 2018-09-17 16:11 | CONS ---
Consult Date/Type/Reason Admit Date/Time September 15, 2018 at 05:17 Initial Consult Date 09/15/18 Type of Consultation: Urology Reason for Consultation Right upper ureteral stone with obstruction and fever Requesting Provider: YARI ECHAVARRIA Date/Time of Note DATE: 09/17/18 TIME: 16:05 Subjective Patient states that she is feeling a little better now. She did have fever last night. She does have mild pain when she urinates and the urine is blood tinged Objective Vitals Vital Signs Date Temp Pulse Resp B/P (MAP) Pulse Ox O2 O2 Flow FiO2 Time Delivery Rate 09/17/18 98.3 110 18 130/76 88 14:26 (94) 09/16/18 2.0 21:58 09/16/18 Nasal 20:38 Cannula Intake and Output 09/16/18 09/16/18 09/17/18 1515:00 23:00 07:00 IntakeIntake Total 600 ml 1595 ml 1090 ml OutputOutput Total 250 ml 520 ml 750 ml BalanceBalance 350 ml 1075 ml 340 ml Exam The abdomen is soft she does have right flank tenderness. The urine is blood- tinged. The urine culture showed E. coli sensitive to all antibiotic. Results/Medications Result Diagram: 09/16/1856 09/16/1856 Results 24 hrs Urine culture URINE CULTURE Final Organism 1 ESCHERICHIA COLI COLONY COUNT >100,000 CFU/ml E COLI M.I.C. RX --------- --- AMPICILLIN 4 S CEFAZOLIN <=4 S CEFOTAXIME S CIPROFLOXACIN <=0.25 S GENTAMICIN <=1 S LEVOFLOXACIN <=0.12 S NITROFURANTOIN <=16 S TOBRAMYCIN <=1 S TRIMETHOPRIM/SULFAMETHOXAZOLE <=20 S Home Meds No Active Prescriptions or Reported Meds Medications Current Medications Sodium Chloride 1,000 ml @ 125 mls/hr Q8H IV Last administered on 09/17/18at 11:37; Admin Dose 125 MLS/HR; Start 09/15/18 at 06:12 IV Flush (NS 3 ml) 3 ml PER PROTOCOL IV ; Start 09/15/18 at 06:30 Ondansetron HCl (Zofran Inj) 4 mg Q6H PRN IV NAUSEA/VOMITING Last administered on 09/17/18at 08:35; Admin Dose 4 MG; Start 09/15/18 at 06:30 Acetaminophen (Tylenol Tab) 650 mg Q6H PRN PO .PAIN 1-3 OR TEMP Last administered on 09/17/18at 04:07; Admin Dose 650 MG; Start 09/15/18 at 06:30 Docusate Sodium (Colace) 100 mg Q12H PRN PO .CONSTIPATION; Start 09/15/18 at 06:30 Bisacodyl (Dulcolax) 5 mg DAILY PRN PO .CONSTIPATION; Start 09/15/18 at 06:30 Tamsulosin HCl (Flomax) 0.4 mg HS PO Last administered on 09/16/18at 21:20; Admin Dose 0.4 MG; Start 09/15/18 at 21:00 Polyethylene Glycol (Miralax) 17 gm BID PO Last administered on 09/17/18at 08:36; Admin Dose 17 GM; Start 09/15/18 at 21:00 Acetaminophen (Tylenol Supp) 650 mg Q4H PRN [place] MILD PAIN(1-3) OR TEMP>38C Last administered on 09/16/18at 13:00; Admin Dose 650 MG; Start 09/16/18 at 13:00 Hydromorphone HCl (Dilaudid) 1 mg Q4H PRN IV .SEVERE PAIN 7-10 Last administered on 09/17/18at 14:46; Admin Dose 1 MG; Start 09/17/18 at 09:00 Levofloxacin/ Dextrose 150 ml @ 100 mls/hr Q24H IVPB ; Start 09/17/18 at 17:00 Assessment/Plan Hospital Course (Demo Recall) 32-year-old female presented to the hospital emergency room with fever for 3 days. She also did have chills and pain in the right side of the abdomen. She underwent a CT scan of the abdomen and pelvis and that showed: 1. 5 mm obstructing proximal right ureteral calcified calculus 4 cm distal to the right ureteral pelvic junction with moderate proximal right hydroureter and hydronephrosis. 2. No other calcified urinary calculi bilaterally. No left obstructive uropathy. 3. 2.3 cm cyst left adnexa likely a left ovarian / para ovarian cyst. Follow-up pelvic ultrasound may be helpful. 4. Bilateral tiny pleural effusions. Bibasilar patchy ground-glass opacities consistent with subsegmental atelectasis/pneumonitis. 5. Tiny fat containing umbilical hernia without herniated bowel or strangulation. Patient states that she had a kidney stone over 10 years earlier and she passed it. Her mother has a history of kidney stones The patient underwent cystoscopy and insertion of right ureteral JJ stent on September 16, 2018. The stone was obstructing. The patient is feeling better today but she did have fever last night. Plan is to continue her antibiotics and once she is afebrile and remains afebrile she may be discharged home and she will follow-up as an outpatient with the urologist contracted with her medical group. She did have many questions regarding the treatment of the stone after her discharge and the removal of the JJ stent. I did explain all of that to her and answered all of her questions. NINO CHEATHAM MD Sep 17, 2018 16:11
[2018-09-17] MEDS ORDERED: BACLOFEN 10 MG TAB PO ONE (17:30)
[2018-09-17] MEDS: LEVOFLOXACIN 750MG/D5W (PMX) 150 ML IVPB SCH (17:37)
[2018-09-17 20:38] VITALS: BP 124/77; PULSE 106; RESP 20
[2018-09-17] MEDS: TAMSULOSIN (SR) 0.4 MG CAP PO SCH (21:28)
[2018-09-18] MEDS: HYDROmorphONE 1 MG/ML SYG IV PRN ×6 (00:07→22:54)
[2018-09-18 02:00] VITALS: BP 122/76; PULSE 106; RESP 18
[2018-09-18] MEDS: IBUPROFEN 600 MG TAB PO PRN ×2 (02:37→12:28)
[2018-09-18] MEDS: SOD CHLORIDE 0.9% 1,000 ML IV SCH (05:34)
[2018-09-18 07:54] VITALS: BP 111/66; PULSE 102; RESP 18
[2018-09-18] MEDS: POLYETHYLENE GLYCOL 17 GM PACKET PO SCH ×2 (08:22→20:17)
--- NOTE | 2018-09-18 12:44 | PN ---
Date/Time of Note Date/Time of Note DATE: 09/18/18 TIME: 12:43 Assessment/Plan VTE Prophylaxis Risk score (from Ns)>0 risk: 1 SCD applied (from Ns): Yes Pharmacological prophylaxis: NA/contraindicated Pharm contraindication: low risk/ambulating Lines/Catheters IV C[facility]ter Type (from [facility]): Peripheral IV Urinary Cath still in place: No Assessment/Plan Hospital Course SUBJECTIVE: Complains of abdominal pain and neck pain. OBJECTIVE: Physical Exam General: Adequately build 32 year-old female lying in bed in no apparent distress. HEENT: Normocephalic, atraumatic. Eyes: Anicteric sclerae, conjunctivae clear. ENT: Nasal septum midline, oral mucosa moist. Neck supple, no JVD noticed. Tenderness in the back of the neck. Respiratory: Bilaterally clear breath sounds. No use of accessory muscles of respiration. No adventitious breath sounds. Cardiovascular: S1, S2 heard. No murmurs or gallops. Abdomen: Soft and nondistended. Minimal right lower quadrant tenderness. Bowel sounds positive in all 4 quadrants. Genitourinary: No CVA tenderness. Extremities: No cyanosis, no clubbing, no edema. Peripheral pulses palpable. Neurologic: Cranial nerves II through XII grossly intact. The patient is awake, alert, and oriented. Skin: Normal skin turgor. No skin rashes. Labs & Vitals per chart ASSESSMENT & PLAN 32-year-old female with no significant comorbidities who came to the emergency room with febrile episodes and pain with CT evidence of obstructing proximal right ureteral calculus, who was admitted to inpatient setting for further treatment and evaluation. 1. Sepsis with leukocytosis and tachycardia, present on admission secondary to underlying urinary tract infection. -Continue empiric antimicrobials. -Urine culture showing E. coli >100,000 CFU/ml. -Continue IV fluids. -Monitor for any septic shock. 2. Complicated UTI. -Urine culture showing E. coli >100,000 CFU/ml. -Continue antimicrobials as per sensitivities. 3. Obstructing right ureteral calculus. -The patient is on tamsulosin. -Continue pain control. -Status post cystoscopy and insertion of right ureteral JJ stent on 09/16/2018. 4. Dyslipidemia. -Elevated triglycerides and suboptimal HDL. -Will advise a low-cholesterol diet. 5. Neck pain after surgery. -Etiology unclear. -Probably from the patient positioning during the intraoperative period. -Continue local compresses. -Continue pain control. 6. Fluids, electrolytes, and nutrition. -Regular diet. 7. DVT prophylaxis. -Bilateral SCDs 8. Plan. -Continue pain control. -Continue antimicrobials. -Patient continues to have significant pain in the neck and abdomen requiring strong pain medications. The patient was seen in collaboration with Dr. Page. Result Diagram: 09/18/18 1121 09/18/18 1121 Results 24hrs Laboratory Tests Test 09/18/18 11:21 White Blood Count 6.7 # Red Blood Count 3.65 L Hemoglobin 10.3 L Hematocrit 32.1 L Mean Corpuscular Volume 87.9 Mean Corpuscular Hemoglobin 28.2 L Mean Corpuscular Hemoglobin Concent 32.1 Red Cell Distribution Width 15.0 H Platelet Count 288 Mean Platelet Volume 8.9 Immature Granulocytes % 1.500 H Neutrophils % 61.2 Lymphocytes % 23.4 Monocytes % 10.9 Eosinophils % 2.7 Basophils % 0.3 Nucleated Red Blood Cells % 0.0 Immature Granulocytes # 0.100 H Neutrophils # 4.1 Lymphocytes # 1.6 Monocytes # 0.7 Eosinophils # 0.2 Basophils # 0.0 Nucleated Red Blood Cells # 0.0 Sodium Level 139 Potassium Level 4.4 Chloride Level 107 Carbon Dioxide Level 27 Anion Gap 5 Blood Urea Nitrogen 5 L Creatinine 0.60 Est Glomerular Filtrat Rate mL/min > 60 Glucose Level 117 Calcium Level 8.1 L Phosphorus Level 3.7 Magnesium Level 2.2 Exam/Review of Systems Exam Vitals Vital Signs Date Temp Pulse Resp B/P (MAP) Pulse Ox O2 O2 Flow FiO2 Time Delivery Rate 09/18/18 97.9 102 18 111/66 90 07:54 (81) 09/16/18 2.0 21:58 09/16/18 Nasal 20:38 Cannula Intake and Output 09/17/18 09/17/18 09/18/18 1515:00 23:00 07:00 IntakeIntake Total 940 ml 1700 ml 1960 ml BalanceBalance 940 ml 1700 ml 1960 ml Results Results 24hrs Laboratory Tests Test 09/18/18 11:21 White Blood Count 6.7 # Red Blood Count 3.65 L Hemoglobin 10.3 L Hematocrit 32.1 L Mean Corpuscular Volume 87.9 Mean Corpuscular Hemoglobin 28.2 L Mean Corpuscular Hemoglobin Concent 32.1 Red Cell Distribution Width 15.0 H Platelet Count 288 Mean Platelet Volume 8.9 Immature Granulocytes % 1.500 H Neutrophils % 61.2 Lymphocytes % 23.4 Monocytes % 10.9 Eosinophils % 2.7 Basophils % 0.3 Nucleated Red Blood Cells % 0.0 Immature Granulocytes # 0.100 H Neutrophils # 4.1 Lymphocytes # 1.6 Monocytes # 0.7 Eosinophils # 0.2 Basophils # 0.0 Nucleated Red Blood Cells # 0.0 Sodium Level 139 Potassium Level 4.4 Chloride Level 107 Carbon Dioxide Level 27 Anion Gap 5 Blood Urea Nitrogen 5 L Creatinine 0.60 Est Glomerular Filtrat Rate mL/min > 60 Glucose Level 117 Calcium Level 8.1 L Phosphorus Level 3.7 Magnesium Level 2.2 Medications Medication Current Medications IV Flush (NS 3 ml) 3 ml PER PROTOCOL IV ; Start 09/15/18 at 06:30 Ondansetron HCl (Zofran Inj) 4 mg Q6H PRN IV NAUSEA/VOMITING Last administered on 09/17/18at 08:35; Admin Dose 4 MG; Start 09/15/18 at 06:30 Acetaminophen (Tylenol Tab) 650 mg Q6H PRN PO .PAIN 1-3 OR TEMP Last administered on 09/17/18at 04:07; Admin Dose 650 MG; Start 09/15/18 at 06:30 Docusate Sodium (Colace) 100 mg Q12H PRN PO .CONSTIPATION; Start 09/15/18 at 06:30 Bisacodyl (Dulcolax) 5 mg DAILY PRN PO .CONSTIPATION; Start 09/15/18 at 06:30 Tamsulosin HCl (Flomax) 0.4 mg HS PO Last administered on 09/17/18at 21:28; Admin Dose 0.4 MG; Start 09/15/18 at 21:00 Polyethylene Glycol (Miralax) 17 gm BID PO Last administered on 09/18/18at 08:22; Admin Dose 17 GM; Start 09/15/18 at 21:00 Acetaminophen (Tylenol Supp) 650 mg Q4H PRN [place] MILD PAIN(1-3) OR TEMP>38C Last administered on 09/16/18at 13:00; Admin Dose 650 MG; Start 09/16/18 at 13:00 Hydromorphone HCl (Dilaudid) 1 mg Q4H PRN IV .SEVERE PAIN 7-10 Last administered on 09/18/18 09:59; Admin Dose 1 MG; Start 09/17/18 at 09:00 Levofloxacin/ Dextrose 150 ml @ 100 mls/hr Q24H IVPB Last administered on 09/17/18 17:37; Admin Dose 100 MLS/HR; Start 09/17/18 at 17:00 Ibuprofen (Motrin) 600 mg Q6H PRN PO neck pain Last administered on 09/18/18 12:28; Admin Dose 600 MG; Start 09/17/18 at 23:30 SALVADOR CROWLEY NP Sep 18, 2018 12:44
[2018-09-18 14:20] VITALS: BP 127/76; PULSE 95; RESP 16
--- NOTE | 2018-09-18 17:19 | CONS ---
Consult Date/Type/Reason Admit Date/Time September 15, 2018 at 05:17 Initial Consult Date 09/15/18 Type of Consultation: Urology Reason for Consultation Right upper ureteral stone with obstruction and fever Requesting Provider: YARI ECHAVARRIA Date/Time of Note DATE: 09/18/18 TIME: 17:15 Subjective Patient feels much better today, she has no severe pain and she is afebrile Objective Vitals Vital Signs Date Temp Pulse Resp B/P (MAP) Pulse Ox O2 O2 Flow FiO2 Time Delivery Rate 09/18/18 98.2 95 16 127/76 92 14:20 (93) 09/16/18 2.0 21:58 09/16/18 Nasal 20:38 Cannula Intake and Output 09/17/18 09/17/18 09/18/18 1515:00 23:00 07:00 IntakeIntake Total 940 ml 1700 ml 1960 ml BalanceBalance 940 ml 1700 ml 1960 ml Exam The abdomen is soft, there is mild right flank tenderness. Results/Medications Result Diagram: 09/18/18 1121 09/18/18 1121 Results 24 hrs Laboratory Tests Test 09/18/18 11:21 White Blood Count 6.7 # Red Blood Count 3.65 L Hemoglobin 10.3 L Hematocrit 32.1 L Mean Corpuscular Volume 87.9 Mean Corpuscular Hemoglobin 28.2 L Mean Corpuscular Hemoglobin Concent 32.1 Red Cell Distribution Width 15.0 H Platelet Count 288 Mean Platelet Volume 8.9 Immature Granulocytes % 1.500 H Neutrophils % 61.2 Lymphocytes % 23.4 Monocytes % 10.9 Eosinophils % 2.7 Basophils % 0.3 Nucleated Red Blood Cells % 0.0 Immature Granulocytes # 0.100 H Neutrophils # 4.1 Lymphocytes # 1.6 Monocytes # 0.7 Eosinophils # 0.2 Basophils # 0.0 Nucleated Red Blood Cells # 0.0 Sodium Level 139 Potassium Level 4.4 Chloride Level 107 Carbon Dioxide Level 27 Anion Gap 5 Blood Urea Nitrogen 5 L Creatinine 0.60 Est Glomerular Filtrat Rate mL/min > 60 Glucose Level 117 Calcium Level 8.1 L Phosphorus Level 3.7 Magnesium Level 2.2 Home Meds No Active Prescriptions or Reported Meds Medications Current Medications IV Flush (NS 3 ml) 3 ml PER PROTOCOL IV ; Start 09/15/18 at 06:30 Ondansetron HCl (Zofran Inj) 4 mg Q6H PRN IV NAUSEA/VOMITING Last administered on 09/17/18 08:35; Admin Dose 4 MG; Start 09/15/18 at 06:30 Acetaminophen (Tylenol Tab) 650 mg Q6H PRN PO .PAIN 1-3 OR TEMP Last administered on 09/17/18 04:07; Admin Dose 650 MG; Start 09/15/18 at 06:30 Docusate Sodium (Colace) 100 mg Q12H PRN PO .CONSTIPATION; Start 09/15/18 at 06:30 Bisacodyl (Dulcolax) 5 mg DAILY PRN PO .CONSTIPATION; Start 09/15/18 at 06:30 Tamsulosin HCl (Flomax) 0.4 mg HS PO Last administered on 09/17/18 21:28; Admin Dose 0.4 MG; Start 09/15/18 at 21:00 Polyethylene Glycol (Miralax) 17 gm BID PO Last administered on 09/18/18 08:22; Admin Dose 17 GM; Start 09/15/18 at 21:00 Acetaminophen (Tylenol Supp) 650 mg Q4H PRN [place] MILD PAIN(1-3) OR TEMP>38C Last administered on 09/16/18 13:00; Admin Dose 650 MG; Start 09/16/18 at 13:00 Hydromorphone HCl (Dilaudid) 1 mg Q4H PRN IV .SEVERE PAIN 7-10 Last administered on 09/18/18 13:59; Admin Dose 1 MG; Start 09/17/18 at 09:00 Levofloxacin/ Dextrose 150 ml @ 100 mls/hr Q24H IVPB Last administered on 09/17/18 17:37; Admin Dose 100 MLS/HR; Start 09/17/18 at 17:00 Ibuprofen (Motrin) 600 mg Q6H PRN PO neck pain Last administered on 09/18/18 12:28; Admin Dose 600 MG; Start 09/17/18 at 23:30 Assessment/Plan Hospital Course (Demo Recall) 32-year-old female presented to the hospital emergency room with fever for 3 days. She also did have chills and pain in the right side of the abdomen. She underwent a CT scan of the abdomen and pelvis and that showed: 1. 5 mm obstructing proximal right ureteral calcified calculus 4 cm distal to the right ureteral pelvic junction with moderate proximal right hydroureter and hydronephrosis. 2. No other calcified urinary calculi bilaterally. No left obstructive uropathy. 3. 2.3 cm cyst left adnexa likely a left ovarian / para ovarian cyst. Follow-up pelvic ultrasound may be helpful. 4. Bilateral tiny pleural effusions. Bibasilar patchy ground-glass opacities consistent with subsegmental atelectasis/pneumonitis. 5. Tiny fat containing umbilical hernia without herniated bowel or strangulation. Patient states that she had a kidney stone over 10 years earlier and she passed it. Her mother has a history of kidney stones The patient underwent cystoscopy and insertion of right ureteral JJ stent on September 16, 2018. The stone was obstructing. The patient is feeling better and she no longer has fever. She does have mild pain with urination. Her urine is clear. She has not ambulated. She may be discharged on oral antibiotics and pain medications and follow-up with her primary care physician and the urologist who is contracted with her [facility] NINO CHEATHAM MD Sep 18, 2018 17:19
[2018-09-18] MEDS: LEVOFLOXACIN 750MG/D5W (PMX) 150 ML IVPB SCH (17:26)
[2018-09-18 20:00] VITALS: BP 131/90; PULSE 93; RESP 19
[2018-09-18] MEDS: TAMSULOSIN (SR) 0.4 MG CAP PO SCH (20:17)
[2018-09-19 02:00] VITALS: BP 118/72; PULSE 92; RESP 19
[2018-09-19] MEDS: HYDROmorphONE 1 MG/ML SYG IV PRN (03:52)
[2018-09-19] MEDS: IBUPROFEN 600 MG TAB PO PRN (05:53)
[2018-09-19] MEDS ORDERED: DIPHENHYDRAMINE 50 MG CAP PO PRN (06:30)
[2018-09-19 08:00] VITALS: BP 128/82; PULSE 89; RESP 18
[2018-09-19] MEDS: POLYETHYLENE GLYCOL 17 GM PACKET PO SCH (09:00)
--- NOTE | 2018-09-19 11:46 | PDOCDIS ---
Discharge Instructions CONDITION [id number] Patient Condition: [id number] Good HOME CARE INSTRUCTIONS: [id number] Diet Instructions: [id number] Regular ACTIVITY: [id number] Activity Restrictions: [id number] No Restrictions FOLLOW UP/APPOINTMENTS Follow-up Plan FOLLOW UP WITH YOUR PCP IN 1-2 WEEKS, FOLLOW UP WITH A UROLOGIST KATE CURRIE Sep 19, 2018 11:46
--- NOTE | 2018-09-19 15:21 | DS ---
Date/Time of Note Date/Time of Note DATE: 09/19/18 TIME: 15:18 Discharge Summary Admission/Discharge Info Admit Date/Time September 15, 2018 at 05:17 Discharge Date/Time Sep 19, 2018 at 13:30 Discharge Diagnosis 32-year-old female with no significant comorbidities who came to the emergency room with febrile episodes and pain with CT evidence of obstructing proximal right ureteral calculus, who was admitted to inpatient setting for further treatment and evaluation. 1. Sepsis with leukocytosis and tachycardia, present on admission secondary to underlying urinary tract infection. -Status post IV antibiotics -Urine culture showing E. coli >100,000 CFU/ml. -Status post IV fluids 2. Obstructing right ureteral calculus -Status post cystoscopy and insertion of right ureteral JJ stent on 09/16/2018, follow-up with urology as an outpatient 3. Dyslipidemia -Elevated triglycerides and suboptimal HDL. -Will advise a low-cholesterol diet. 4. Neck pain after surgery-improved -Probably from the patient positioning during the intraoperative period. Patient Condition: Good Hospital Course Patient is a 32-year-old female with no significant comorbidities who came to the emergency room with febrile episodes and pain with CT evidence of obstructin g proximal right ureteral calculus, who was admitted to inpatient setting for further treatment and evaluation. Patient did meet sepsis criteria, source was secondary to UTI from nephrolithiasis. Urine culture did show E. coli and patient did receive a course of IV antibiotics. Patient was seen by urology and underwent cystoscopy and insertion of right ureteral JJ stent. Patient had resolution of sepsis and was stable for DC. On the day of discharge patient vitals, labs and physical exam are stable. Home Meds No Active Prescriptions or Reported Meds Follow-up Plan FOLLOW UP WITH YOUR PCP IN 1-2 WEEKS, FOLLOW UP WITH A UROLOGIST Primary Care Provider Care Physician No Primary Time spent on discharge: > 30 minutes KATE CURRIE Sep 19, 2018 15:21
== END 2018-09-19 13:30 | disposition home or self-care (01) | DRG 854 ==
LOC: FTE 01:09 → PP2 05:17
PROVIDERS: ADMIT Family Medicine; ATTEND Family Medicine
PROC: 0T768DZ Dilation of Right Ureter with Intraluminal Device, Via Natural or Artificial Opening Endoscopic (ICD-10-PCS; principal; 2018-09-16 17:30)
DX: A41.9 Sepsis, unspecified organism (principal); N39.0 Urinary tract infection, site not specified; N13.2 Hydronephrosis with renal and ureteral calculous obstruction; B96.20 Unspecified Escherichia coli [E. coli] as the cause of diseases classified elsewhere; Z87.442 Personal history of urinary calculi; E78.5 Hyperlipidemia, unspecified
CPT/HCPCS: 36415; 71045; 74018; 74176; 74430; 80048; 80053; 80061; 81001; 81025; 83036; 83690; 83735; 84100; 84439; 84443; 85025; 85610; 85730; 87086; 96361; 96374; 96375; J0131; J0696; J1170; J1885; J1956; J2250; J2405; J2543; J2710; J3010; J7030